=== PATIENT | female | born 1940 | race Caucasian/White ===

== ENCOUNTER → 2016-08-28 | Day surgery (SDC) | payer OTHER ==
[~2016-08-28] MED LIST: DEXAMETHASONE SOD PHOS 4 MG/ML VIAL ONE; EPINEPHrine HCL (1:1000) 1 MG/ML VIAL ONE; LACTATED RINGER'S 1000 ML INJ 1,000 ML ONE; MIDAZOLAM HCL 2 MG/2 ML VIAL ONE; MOXIFLOXACIN 0.5% OPHT SOLN 3 ML BTL ONE; ONDANSETRON HCL 4 MG/2 ML VIAL IV PUSH ONE; PHENYLEPHRINE HCL 10% OPTH SOLN 5 ML BTL ONE; PROPOFOL 200 MG/20 ML AMP IV ONE; SODIUM CHLORIDE 0.9% INJ 10 ML ONE; TETRACAINE 0.5% OPTH SOLN 15 ML BTL ONE; TOBRAMYCIN/DEXAMETHASONE OPTH OINT 3.5 GM TUBE ONE; ceFAZolin INJ 1,000 MG VIAL ONE; prednisoLONE ACETATE 1% OPHT SUSP 5 ML BTL ONE
--- NOTE | 2016-08-31 09:49 | MP ---
cc: JOSÉ MANUEL ROSS MD DATE OF SURGERY 08/29/2016 POSTOPERATIVE DIAGNOSIS Severe epiretinal membrane, macular edema, metamorphopsia right eye. PROCEDURE Pars plana vitrectomy, removal of ILM/ERM, endolaser, air-fluid exchange, right eye. COMPLICATIONS None BLOOD LOSS Less than 1 cc. ANESTHESIA General, Dr. Enrique INDICATIONS FOR PROCEDURE This is a delightful patient who has severe epiretinal membrane and metamorphopsia in her right eye. The patient was having progressive difficulty with daily functions and elected to have a surgical correction. PROCEDURE After informed consent was obtained, the patient was brought to the operating room, general anesthesia was established. The right eye was prepped and draped in a sterile fashion with Betadine in the conjunctival fornix. A three port pars plana vitrectomy was established with self-retaining infusion cannula. Core vitreous was removed. The ERM/ILM complex was highlighted with ICG and removed with Jaya ILM forceps. Scleral depressed examination revealed the previously treated retinal tears and an area of retinal traction impending. These were treated with endolaser. Air-fluid exchange was carried out. Trocars were removed and sclerotomies closed. Subconjunctival injection Ancef and Dexamethasone was given. The eye was patched with Tobramycin ointment. The patient was brought to the recovery room in stable condition to continue follow up at [facility] for her postoperative care. MD INNA Kim/BALBINA /5:04 PM /9:29 AM
== END | disposition home or self-care (01) ==
LOC: ESDC 08:19
PROVIDERS: ATTEND Ophthalmology
DX: H35.371 Puckering of macula, right eye (principal); H35.81 Retinal edema; H53.15 Visual distortions of shape and size
CPT/HCPCS: 00145; 67043; J0171; J0690; J1100; J2250; J2405; J3010; J7120